=== PATIENT | male | born 1985 | race Caucasian/White ===

== ENCOUNTER 2017-03-04 07:29 | Emergency (ER) | payer OTHER ==
--- NOTE | 2017-03-04 07:57 | ED ORDER SUMMARY ---
..... Patient: MARILOU HALL OrderSheet [facility] VisitID: [id number] [address] [place] [address] 31y, M Registration Date/Time: 03/04/2017 ORDER SHEET Weight: 102.0 kg (stated) Allergies: None GENERAL ORDERS: MEDICATION ORDERS: Pdxrnxu-Qjfmdr-Zlecs Pertussis IM 0.5 mL (NOW, per protocol) (07:53 03/04/2017 RMarsden R.N. per protocol) (Ack 7:54 RMarsden R.N.) (8:00 RMarsden R.N.) IV FLUIDS: ORDER SHEET NOTES: [Electronically signed by Richelle Alvarez R.N. (08:44 03/04/2017)] [Electronically signed by Doug Dumont MD (09:30 03/04/2017)] [Electronically locked/signed by Richelle Alvarez R.N. (08:44 03/04/2017)]
--- NOTE | 2017-03-04 07:57 | ED NURSING NOTES ---
Clinical Report - Nurses [facility] [address] [place] [address] 03/04/2017 7:34 [id number] TRI[facility] Triage time 07:40. Acuity: LEVEL 4. Chief Complaint: INJURY TO RIGHT HAND. 07:49 03/04/17. Alert. No acute distress. SEPSIS SCREEN: Sepsis Screen. Negative (no infection suspected/documented). ISABELLA COMA SCORE: Isabella Coma Scale: 15- eyes open spontaneously (4); best verbal response- oriented x 4 (5); best motor response- obeys commands (6). --07:49 Richelle Alvarez R.N. 07:42 03/04/17. BP: 158/68. HR: 68. RR: 16. O2 saturation: 100%. Temp: 98.3 F. Pain level now: 01/09. --07:49 Richelle Alvarez R.N. Weight: 102 kg stated. Height/Length: 67 inches Per Patient. BMI: 35.3. --07:47 Richelle Alvarez R.N. Medications None. --07:45 Richelle Alvarez R.N. Allergies None. --07:45 Richelle Alvarez R.N. History Arrived by private vehicle. Historian: patient. 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 This occurred just prior to arrival. Occurred at work. He sustained a laceration from a sharp edge. ( Patient states he was working with "sharp tools- a drill type thing" when his hand brushed against the sharp edge, forming a laceration.). No weakness or numbness. Treatment PHYSICIAN AIDE: None. PAST MEDICAL HX: Date of last tetanus shot cannot be recalled. Immunizations: status is unknown. SOCIAL HX: Never smoker. No alcohol use or drug use. FALL RISK ASSESSMENT: Fall risk assessment completed. No fall risk identified. NUTRITIONAL RISK ASSESSMENT: The nutritional risk assessment revealed no deficiencies. FUNCTIONAL ASSESSMENT: Functional assessment: no impairments noted. LEARNING NEEDS ASSESSMENT: The learning needs assessment revealed no barriers. SKIN INTEGRITY ASSESSMENT: Skin integrity risk assessment completed. No skin integrity risk identified. --07:49 Richelle Alvarez R.N. PROBLEMS: no known problems. ADDITIONAL SURGERIES: no known surgeries. Interventions ID band on patient. To treatment room. --07:49 Richelle Alvarez R.N. PHYSICAL ASSESSMENT 07:50 03/04/17. Ambulatory to room. GENERAL / NEURO / PSYCH: Oriented X 4. Alert. Appears in no acute distress. EXTREMITIES: Capillary refill is less than 2 seconds in the extremities. Extremity pulses are within normal limits. Extremities exhibit normal ROM. Dorsal right hand: subcutaneous 1.5 cm laceration with controlled bleeding (on knuckle of R Index finger). SKIN: Skin intact. Skin is warm and dry. --07:51 Richelle Alvarez R.N. NURSING PROGRESS NOTES 07:51 03/04/17. Two patient identifiers checked. Call light placed in reach. Side rails up x 1. Bed placed in lowest position. Brakes of bed on. Patient ready for evaluation- chart flagged and notification provided. --07:51 Richelle Alvarez R.N. 07:52 03/04/17. Wound irrigated with 500 mL sterile NS using a high-pressure irrigation system; patient tolerated procedure well. --07:53 Altagracia Carlos 08:00 03/04/2017 VYTNXQM-NATOSL-COAOF PERTUSSIS IM 0.5 mL given. (Lot#: [id number], expiration date: 08/09/2018, Steel Handler: sanofi pasteur). Given in the left deltoid. Allergies verified and confirmed 5 rights. Vaccine information statement provided to the patient. --08:00 Richelle Alvarez R.N. DISPOSITION / DISCHARGE 08:43 03/04/17. No learning barriers present. Discharge instructions provided and reviewed with the patient. Treatments reviewed. Activity restrictions reviewed. Work note given. Patient verbalized understanding. Written instructions provided in Syriac. The patient was discharged by the physician. He was discharged home. He left the Emergency Department ambulatory and via private vehicle. Patient driving. --08:43 Richelle Alvarez R.N. 07:42 03/04/17. BP: 158/68. HR: 68. RR: 16. O2 saturation: 100%. Temp: 98.3 F. Pain level now: 01/09. --08:43 Richelle Alvarez R.N. Departure time: 08:42. --08:43 Richelle Alvarez R.N. Locked/Released at 03/04/2017 8:44 by Richelle Alvarez R.N.
--- NOTE | 2017-03-04 07:57 | ED ORDER SUMMARY ---
..... Patient: MARILOU HALL OrderSheet [facility] VisitID: [id number] [address] [place] [address] 31y, M Registration Date/Time: 03/04/2017 ORDER SHEET Weight: 102.0 kg (stated) Allergies: None GENERAL ORDERS: MEDICATION ORDERS: Zjnzzmu-Zjouyc-Eilhy Pertussis IM 0.5 mL (NOW, per protocol) (07:53 03/04/2017 RMarsden R.N. per protocol) (Ack 7:54 RMarsden R.N.) (8:00 RMarsden R.N.) IV FLUIDS: ORDER SHEET NOTES: [Electronically signed by Richelle Alvarez R.N. (08:44 03/04/2017)] [Electronically signed by Doug Dumont MD (09:30 03/04/2017)] [Electronically locked/signed by Richelle Alvarez R.N. (08:44 03/04/2017)]
--- NOTE | 2017-03-04 07:57 | ED NURSING NOTES ---
Clinical Report - Nurses [facility] [address] [place] [address] 03/04/2017 7:34 [id number] Triage time 07:40. Acuity: LEVEL 4. Chief Complaint: INJURY TO RIGHT HAND. 07:49 03/04/17. Alert. No acute distress. SEPSIS SCREEN: Sepsis Screen. Negative (no infection suspected/documented). ISABELLA COMA SCORE: Isabella Coma Scale: 15- eyes open spontaneously (4); best verbal response- oriented x 4 (5); best motor response- obeys commands (6). --07:49 Richelle Alvarez R.N. 07:42 03/04/17. BP: 158/68. HR: 68. RR: 16. O2 saturation: 100%. Temp: 98.3 F. Pain level now: 01/09. --07:49 Richelle Alvarez R.N. Weight: 102 kg stated. Height/Length: 67 inches Per Patient. BMI: 35.3. --07:47 Richelle Alvarez R.N. Medications None. --07:45 Richelle Alvarez R.N. Allergies None. --07:45 Richelle Alvarez R.N. History Arrived by private vehicle. Historian: patient. 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 This occurred just prior to arrival. Occurred at work. He sustained a laceration from a sharp edge. ( Patient states he was working with "sharp tools- a drill type thing" when his hand brushed against the sharp edge, forming a laceration.). No weakness or numbness. Treatment CROSSBOW MAKER: None. PAST MEDICAL HX: Date of last tetanus shot cannot be recalled. Immunizations: status is unknown. SOCIAL HX: Never smoker. No alcohol use or drug use. FALL RISK ASSESSMENT: Fall risk assessment completed. No fall risk identified. NUTRITIONAL RISK ASSESSMENT: The nutritional risk assessment revealed no deficiencies. FUNCTIONAL ASSESSMENT: Functional assessment: no impairments noted. LEARNING NEEDS ASSESSMENT: The learning needs assessment revealed no barriers. SKIN INTEGRITY ASSESSMENT: Skin integrity risk assessment completed. No skin integrity risk identified. --07:49 Richelle Alvarez R.N. PROBLEMS: no known problems. ADDITIONAL SURGERIES: no known surgeries. Interventions ID band on patient. To treatment room. --07:49 Richelle Alvarez R.N. PHYSICAL ASSESSMENT 07:50 03/04/17. Ambulatory to room. GENERAL / NEURO / PSYCH: Oriented X 4. Alert. Appears in no acute distress. EXTREMITIES: Capillary refill is less than 2 seconds in the extremities. Extremity pulses are within normal limits. Extremities exhibit normal ROM. Dorsal right hand: subcutaneous 1.5 cm laceration with controlled bleeding (on knuckle of R Index finger). SKIN: Skin intact. Skin is warm and dry. --07:51 Richelle Alvarez R.N. NURSING PROGRESS NOTES 07:51 03/04/17. Two patient identifiers checked. Call light placed in reach. Side rails up x 1. Bed placed in lowest position. Brakes of bed on. Patient ready for evaluation- chart flagged and notification provided. --07:51 Richelle Alvarez R.N. 07:52 03/04/17. Wound irrigated with 500 mL sterile NS using a high-pressure irrigation system; patient tolerated procedure well. --07:53 Altagracia Carlos 08:00 03/04/2017 FERZEDS-CYXPWQ-JGFQQ PERTUSSIS IM 0.5 mL given. (Lot#: [id number], expiration date: 08/09/2018, Gear Grinder: sanofi pasteur). Given in the left deltoid. Allergies verified and confirmed 5 rights. Vaccine information statement provided to the patient. --08:00 Richelle Alvarez R.N. DISPOSITION / DISCHARGE 08:43 03/04/17. No learning barriers present. Discharge instructions provided and reviewed with the patient. Treatments reviewed. Activity restrictions reviewed. Work note given. Patient verbalized understanding. Written instructions provided in Divehi. The patient was discharged by the physician. He was discharged home. He left the Emergency Department ambulatory and via private vehicle. Patient driving. --08:43 Richelle Alvarez R.N. 07:42 03/04/17. BP: 158/68. HR: 68. RR: 16. O2 saturation: 100%. Temp: 98.3 F. Pain level now: 01/09. --08:43 Richelle Alvarez R.N. Departure time: 08:42. --08:43 Richelle Alvarez R.N. Locked/Released at 03/04/2017 8:44 by Richelle Alvarez R.N.
--- NOTE | 2017-03-04 08:13 | ED CLINICAL REPORT ---
Clinical Report - Physicians/Mid Levels [facility] [address] [place] [address] 03/04/2017 7:34 [id number] Time Seen: 07:57. Arrived- By private vehicle. Historian- patient. HISTORY OF PRESENT ILLNESS Chief Complaint: Injury to the right index finger. The injury happened just prior to arrival. The patient sustained a laceration from a sharp edge. Occurred at work. ( he was working with "sharp tools- a drill type thing" when his hand brushed against a sharp edge, forming a laceration). Patient is experiencing mild pain. No other injury. REVIEW OF SYSTEMS The patient sustained a single laceration to the right index finger. No swelling, tingling, numbness, weakness or foreign body. All systems otherwise negative, except as recorded above. PAST HISTORY The patient's dominant hand is the right. Tetanus immunization status is unknown. SOCIAL HISTORY Never smoker. No alcohol use or drug use. FAMILY HISTORY No significant family medical history. ADDITIONAL NOTES The nursing notes have been reviewed. PHYSICAL EXAM Vital Signs: 03/04/2017 07:42 BP: 158/68. HR: 68. RR: 16. O2 saturation: 100%. Temp: 98.3 F. Pain level now: 3/10. Have been reviewed. Appearance: Alert. No acute distress. Head: Head atraumatic. Eyes: Pupils equal, round and reactive to light. ENT: Pharynx normal. Neck: Neck supple. CVS: Heart sounds normal. Respiratory: Breath sounds normal. Abdomen: No visible injury. Back: Normal inspection. Skin: Skin warm and dry. Extremities: Right index finger: subcutaneous laceration of the dorsal aspect and MCP joint. Neurovascular intact distally. No limitation in movement. No signs of infection present. Neuro, Vascular and Tendons: Vascular status intact. Sensation intact. Motor intact. Tendon function intact. PROGRESS AND PROCEDURES Laceration Repair: Location: right index finger. Time-out completed immediately before the procedure. Length: 1.5cm. Complexity: simple (closed with tissue adhesive). Wound depth/shape- linear. Distal neuro/vascular/tendon status normal. Prepped with Hibiclens. Wound explored, cleansed and examined to the base in bloodless field. Closure of superficial layer. Skin adhesive used. Post-procedure: he is stable and there are no complications. Bleeding is controlled. Tetanus immunization given. Course of Care: Patient is stable. Patient/family counseled. Old medical records ordered. Old records unavailable. Other: (L&I form completed). Disposition: Discharged. Condition: stable. CLINICAL IMPRESSION Single superficial laceration to the right index finger. INSTRUCTIONS Limit use of your hand. Warnings: COMPLICATIONS: Complications from this condition include: possible infection. Future problems may include infection, scarring and pain. INFECTION: Watch for signs of infection (increasing heat and redness, pus-like drainage, swelling, or increased pain). Return or see your doctor if these signs occur. TETANUS: You were given a tetanus shot during your visit. Make a note for future reference. GENERAL WARNINGS: Return or contact your physician immediately if your condition worsens or changes unexpectedly, if not improving as expected, or if other problems arise. Understanding of the discharge instructions verbalized by patient. (Electronically signed by Doug Dumont MD 03/04/2017 9:30)
--- NOTE | 2017-03-04 09:30 | ED MAR SUMMARY ---
..... Medication Administration Record [facility] [address] [place] [address] Patient: MARILOU HALL Visit ID: [id number] 31y, M Weight: 102.0 kg Height/Length: 67 in BMI: 35.3 ALLERGIES: None Given 08:00 03/04/2017 Richelle Alvarez R.N. Medication Administered: ZRSJOLO-WFQUXB-LEHJQ PERTUSSIS [IM], Dose: 0.5 mL IM. Medication Ordered: Gbzpnlz-Iofxoq-Krcqn Pertussis IM 0.5 mL (NOW, per protocol).
--- NOTE | 2017-03-04 09:30 | ED MED RECONCILIATION SUMMARY ---
Patient: MARILOU HALL Medication Reconciliation Report [facility] VisitID: [id number] [address] [place] [address] 31y, M Registration Date/Time: 03/04/2017 Weight: 102.0 kg Height/Length: 67 in. BMI: 35.3 ALLERGIES: None The patient's Home Medications are listed below: NONE. The source(s) of the original Home Medication information: Not obtained. The following Medications were given to the patient in the Emergency Department: RQHSDPT-HFUIIH-TABQE PERTUSSIS [IM] IM 0.5 mL, administered: 03/04/2017 8:00:00 AM The following Medications were prescribed to the patient: None.
--- NOTE | 2017-03-04 09:30 | ED MAR SUMMARY ---
..... Medication Administration Record [facility] [address] [place] [address] Patient: MARILOU HALL Visit ID: [id number] 31y, M Weight: 102.0 kg Height/Length: 67 in BMI: 35.3 ALLERGIES: None Given 08:00 03/04/2017 Richelle Alvarez R.N. Medication Administered: QNRAQCE-RIYYZF-IRVAK PERTUSSIS [IM], Dose: 0.5 mL IM. Medication Ordered: Mbuwvji-Qqyirm-Rnjqx Pertussis IM 0.5 mL (NOW, per protocol).
--- NOTE | 2017-03-04 09:30 | ED MED RECONCILIATION SUMMARY ---
Patient: MARILOU HALL Medication Reconciliation Report [facility] VisitID: [id number] [address] [place] [address] 31y, M Registration Date/Time: 03/04/2017 Weight: 102.0 kg Height/Length: 67 in. BMI: 35.3 ALLERGIES: None The patient's Home Medications are listed below: NONE. The source(s) of the original Home Medication information: Not obtained. The following Medications were given to the patient in the Emergency Department: QVEHMVZ-HUBLDO-EOUQF PERTUSSIS [IM] IM 0.5 mL, administered: 03/04/2017 8:00:00 AM The following Medications were prescribed to the patient: None.
--- NOTE | 2017-03-04 09:30 | ED DISCHARGE INSTRUCTIONS ---
Patient: MARILOU HALL General Instructions [facility] VisitID: [id number] [place] [address] 31y, M Registration Date/Time: 03/04/2017 Single superficial laceration to the right index finger. INSTRUCTIONS Limit use of your hand. Warnings: COMPLICATIONS: Complications from this condition include: possible infection. Future problems may include infection, scarring and pain. INFECTION: Watch for signs of infection (increasing heat and redness, pus-like drainage, swelling, or increased pain). Return or see your doctor if these signs occur. TETANUS: You were given a tetanus shot during your visit. Make a note for future reference. GENERAL WARNINGS: Return or contact your physician immediately if your condition worsens or changes unexpectedly, if not improving as expected, or if other problems arise. Understanding of the discharge instructions verbalized by patient. ADDITIONAL INFORMATION Laceration, Extremity (Sutures, Wnedy, Or Tape) A laceration is a cut through the skin. This will usually require stitches (sutures) or wendy if it is deep. Minor cuts may be treated with surgical tape closures. Home care The following guidelines will help you care for your laceration at home: Keep the wound clean and dry. If a bandage was applied and it becomes wet or dirty, replace it. Otherwise, leave it in place for the first 24 hours, then change it once a day or as directed. If stitches or wendy were used, clean the wound daily: After removing the bandage, wash the area with soap and water. Use a wet cotton swab to loosen and remove any blood or crust that forms. After cleaning, keep the wound clean and dry. Talk with your doctor before applying any antibiotic ointment to the wound. Reapply the bandage. You may remove the bandage to shower as usual after the first 24 hours, but do not soak the area in water (no swimming) until the stitches or wendy are removed. If surgical tape closures were used, keep the area clean and dry. If it becomes wet, blot it dry with a towel. The doctor may prescribe an antibiotic cream or ointment to prevent infection. Do not stop taking this medication until you have finished the prescribed course or the doctor tells you to stop. The doctor may also prescribe medications for pain. Follow the doctors instructions for taking these medications. If you have chronic liver or kidney disease or ever had a stomach ulcer or GI bleeding, talk with your doctor before using these medicines. Follow-up care Follow up with your health care provider. Most skin wounds heal within ten days. However, an infection may sometimes occur despite proper treatment. Therefore, check the wound daily for the signs of infection listed below. Stitches and wendy should be removed within 714 days. If surgical tape closures were used, you may remove them after 10 days, if they have not fallen off by then. Notify your doctor if you notice persistent numbness or weakness in the injured extremity. (Note:A radiologist will review any X-rays that were taken. We will notify you of any new findings that may affect your care.) When to seek medical care Get prompt medical attention if any of these occur: Increasing pain in the wound Redness, swelling, or pus coming from the wound Fever of 100.4F (38C) or higher, or as directed by your health care provider If stitches or wendy come apart or fall out before your next appointment If the surgical tape closures fall off within seven days, or the wound edges re-open Bleeding not controlled by direct pressure Laceration(Skin Glue) A laceration is a cut through the skin. You have a laceration that has been closed with a type of skin glue. Home Care Medications: Acetaminophen (Tylenol) or ibuprofen (Motrin, Advil) may be taken for pain, unless another pain medicine was prescribed. NOTE: If you have chronic liver or kidney disease or ever had a stomach ulcer or GI bleeding, talk with your doctor before using these medications. General Care: Keep the wound clean and dry. You may shower or bathe as usual, but do not use soaps, lotions, or ointments on the wound area. Do not scrub the wound. After bathing, pat the wound dry with a soft towel. If a bandage was applied and it becomes wet or dirty, replace it. Otherwise, change the bandage every 24 hours. Do not scratch, rub, or pick at the film. Do not place tape directly over the film. Do not apply liquids (such as peroxide), ointments, or creams to the wound while the film is in place. Most skin wounds heal without problems. However, an infection sometimes occurs despite proper treatment. Therefore, watch for the signs of infection listed below. Follow Up as directed by the doctor or our staff. The skin glue film will fall off naturally in 5 to 10 days. Get Prompt Medical Attention if any of the following occur: Signs of infection: Fever of 100.4F (38C) or higher, or as directed by your healthcare provider Increasing pain in the wound Increasing redness or swelling Pus coming from the wound Wound bleeds more than a small amount or bleeding doesnt stop Wound edges come apart You feel numbness or weakness in the wound area that doesnt go away Diphtheria Toxoid Adsorbed, Pertussis Vaccine, Acellular (Adsorbed), Tetanus Toxoid, Adsorbed Suspension for injection What is this medicine? DIPHTHERIA and TETANUS TOXOIDS; PERTUSSIS VACCINE (dif THEER ee uh and TET n us TOK soids; per LAURITA davila SEEN) is used to prevent diphtheria, tetanus, and pertussis infections. How should I use this medicine? This vaccine is for injection into a muscle. It is given by a health patient care specialist. A copy of Vaccine Information Statements will be given before each vaccination. Read this sheet carefully each time. The sheet may change frequently. Talk to your human service coordinator regarding the use of this vaccine in children. While the DTP vaccine may be given to children ages 6 weeks to 7 years and the Tdap vaccine may be given to children at least 10 years old, precautions do apply. What side effects may I notice from receiving this medicine? Side effects that you should report to your doctor or health patient care specialist as soon as possible: allergic reactions like skin rash, itching or hives, swelling of the face, lips, or tongue breathing problems fever of 103 degrees F or more flu-like symptoms inconsolable crying infection pain, tingling, numbness in the hands or feet seizures swelling of arm or leg that was injected unusually weak or tired Side effects that usually do not require immediate medical attention (report these side effects to your doctor or health patient care specialist if they continue or are bothersome): fussy, irritable loss of appetite fever of 102 degrees F or less pain, tenderness, redness, swelling, or a 'knot' at site where injected vomiting What may interact with this medicine? immune globulin medicines that suppress your immune function like adalimumab, anakinra, infliximab medicines to treat cancer medicines that treat or prevent blood clots like warfarin, enoxaparin, and dalteparin steroid medicines like prednisone or cortisone What if I miss a dose? It is important not to miss your dose. Call your doctor or health patient care specialist if you are unable to keep an appointment. Where should I keep my medicine? This drug is given in a hospital or clinic and will not be stored at home. What should I tell my health care provider before I take this medicine? They need to know if you have any of these conditions: blood disorders like hemophilia fever or infection immune system problems neurologic disease seizures an unusual or allergic reaction to vaccines, thimerosal, latex, other medicines, foods, dyes, or preservatives or trying to get breast-feeding What should I watch for while using this medicine? See your health care provider for all shots of this vaccine as directed. To have protection from infection, you must have 3 shots of this vaccine plus boosters as needed. Tell your doctor right away if you have any serious or unusual side effects after getting this vaccine. You have been given the following additional information: Laceration, Extrem (Suture, Staple, Or Tape) Laceration, Extremity (Skin Glue) Diphtheria Toxoid Adsorbed, Pertussis Vaccine, Acellular (Adsorbed), Tetanus Toxoid, Adsorbed Suspension for injection Limit use of your hand. (Electronically signed by Doug Dumont MD 03/04/2017 9:30)
== END 2017-03-04 08:42 | disposition home or self-care (01) ==
LOC: ED SRH 07:29
DX: S61.210A Laceration without foreign body of right index finger without damage to nail, initial encounter (principal); W26.8XXA Contact with other sharp object(s), not elsewhere classified, initial encounter; Y93.89 Activity, other specified; Y92.89 Other specified places as the place of occurrence of the external cause; Y99.0 Civilian activity done for income or pay; Z23 Encounter for immunization
CPT/HCPCS: 82708